=== PATIENT | male | born 1985 | race Caucasian/White ===

== ENCOUNTER 2020-08-30 06:51 | Inpatient (IN) ==
[2020-08-30] MEDS ORDERED: Naloxone 0.4 MG/ML INJ IVP ONE ×2 (07:24→07:31)
[2020-08-30] MEDS ORDERED: 0.9 % Sodium Chloride 1,000 ML IVC ONE ×2 (07:24→12:16)
[2020-08-30] MEDS ORDERED: 0.9 % Sodium Chloride 1,000 ML ONE (07:27)
[2020-08-30 08:26] LABS: INR 1.5; Prothrombin Time 17.6 Seconds (9.4-12.1)
[2020-08-30 08:37] LABS: Troponin I 0.17 ng/mL (< 0.04)
[2020-08-30 08:37] LABS: Basophils % 0.1 %; Hematocrit 38.4 % (37.5-50.1); Hemoglobin 12.4 g/dL (12.9-16.9); Lymphocytes # 0.9 K/mcL (0.6-4.6); Lymphocytes % 8.1 %; Mean Corpuscular HGB Conc 32.3 g/dL (31.6-35.5); Mean Platelet Volume 9.2 fL (9.4-12.4); Monocytes # 1.1 K/mcL (0.0-1.3); Monocytes % 9.5 %; Neutrophils # 9.2 K/mcL (1.6-8.9); Nucleated Red Blood Cells 2.5 /100 WBC (0); Platelet Count 223 K/mcL (140-400); Red Blood Count 4.13 M/mcL (4.19-5.50); Red Cell Distribution Width 13.2 % (11.5-14.5); Segmented Neutrophils % 81.3 %; White Blood Count 11.3 K/mcL (4.3-11.1)
[2020-08-30 08:52] LABS: Alanine Aminotransferase 3234 Units/L (7-52); Albumin/Globulin Ratio 1.6 (1.1-2.2); Alkaline Phosphatase 78 Units/L (34-104); Aspartate Amino Transferase 2985 Units/L (13-39); BUN/Creatinine Ratio 12 (6-26); Bilirubin,Direct 0.3 mg/dL (0.0-0.2); Bilirubin,Indirect 0.6 mg/dL (0.0-1.0); Bilirubin,Total 0.9 mg/dL (0.3-1.0); Blood Urea Nitrogen 26 mg/dL (6-20); Calcium 8.6 mg/dL (8.6-10.3); Carbon Dioxide 23 mEq/L (23-29); Chloride 95 mEq/L (98-107); Ethanol < 10 mg/dL (Less than 10); Globulin 2.5 g/dL (2.4-3.5); Glucose 142 mg/dL (70-105); Osmolality,Calculated 293 (280-300); Potassium 5.4 mEq/L (3.5-5.1); Sodium 138 mEq/L (136-145); Total Protein 6.5 g/dL (6.4-8.9); eGFR For African Americans 42 (> 60); eGFR For Non-African Americans 35 (> 60)
[2020-08-30 09:45] LABS: Acetaminophen < 10 mcg/mL (10-20); Salicylate < 2.5 mg/dL (15.0-30.0)
[2020-08-30] MEDS ORDERED: cefTRIAXone 1,000 MG in 0.9 % Sodium Chloride Mini Bag 100 ML IVPB ONE (12:08)
[2020-08-30] MEDS ORDERED: Azithromycin 500 MG in D5% in Water 250 ML IVPB ONE (12:08)
[2020-08-30] MEDS ORDERED: Ondansetron ODT 4 MG TAB.RAPDIS SL PRN (12:09)
[2020-08-30] MEDS ORDERED: Melatonin 3 MG TABLET PO PRN (12:09)
[2020-08-30] MEDS ORDERED: Naloxone 0.4 MG/ML INJ IVP PRN (12:09)
[2020-08-30] MEDS ORDERED: Mag Hydrox/Al Hydrox/Simeth 30 ML UDC PO PRN (12:09)
[2020-08-30 13:45] LABS: Procalcitonin 2.93 ng/mL (0.00-0.15)
[2020-08-30] MEDS: 0.9 % Sodium Chloride 1,000 ML IVC SCH ×2 (14:22→20:37)
[2020-08-30] MEDS: Ampicillin/Sulbactam 3,000 MG in 0.9 % Sodium Chloride Mini Bag 100 ML IVPB SCH ×2 (14:24→18:45)
[2020-08-30 16:37] LABS: Hepatitis B Surface Antigen Nonreactive (Nonreactive)
[2020-08-30 17:06] LABS: Hepatitis C Virus Antibody Nonreactive (Nonreactive)
[2020-08-30 17:07] LABS: Hepatitis A Antibody IgM Nonreactive (Nonreactive); Hepatitis B Core IgM Nonreactive (Nonreactive)
[2020-08-30] MEDS: *HR* Heparin 5,000 UNIT/ML VIAL SQ SCH ×2 (17:10→22:54)
[2020-08-30 17:57] LABS: Troponin I 0.49 ng/mL (< 0.04)
[2020-08-30] MEDS ORDERED: Ampicillin/Sulbactam 3,000 MG in 0.9 % Sodium Chloride Mini Bag 100 ML IVPB SCH (18:00)
[2020-08-30 18:23] LABS: Amorphous Sediment,Urine Few per hpf (None-Few); Bacteria,Urine Few per hpf (None-Few); Bilirubin,Urine Negative (Negative); Blood,Urine Large (Negative); Clarity,Urine Clear (Clear); Color,Urine Light-Yellow (Yellow); Glucose,Urine (UA) Normal (Normal); Hyaline Casts,Urine Few per lpf (None Seen); Ketones,Urine Negative (Negative); Leukocyte Esterase,Urine Negative (Negative); Mucus,Urine Few per lpf (None-Few); Nitrite,Urine Negative (Negative); Protein,Urine 30 mg/dL (Neg-Trace); RBC,Urine 0-3 per hpf (0-3); Specific Gravity,Urine 1.011 (1.010-1.025); Urobilinogen,Urine Normal (Normal)
[2020-08-30 18:31] LABS: Amphetamine Screen,Urine Negative ng/mL (Cutoff=1000); Barbiturate Screen,Urine Negative ng/mL (Cutoff=200); Benzodiazepines Screen,Urine Negative ng/mL (Cutoff=200); Cannabinoid Screen,Urine Positive ng/mL (Cutoff = 50); Cocaine Screen,Urine Negative ng/mL (Cutoff= 300); Opiate Screen,Urine Negative ng/mL (Cutoff=300); Phencyclidine Screen,Urine Negative ng/mL (Cutoff=25)
[2020-08-30 19:01] LABS: Alanine Aminotransferase 4632 Units/L (7-52); Albumin 3.9 g/dL (3.5-5.7); Albumin/Globulin Ratio 1.7 (1.1-2.2); Alkaline Phosphatase 75 Units/L (34-104); Aspartate Amino Transferase > 3000 Units/L (13-39); BUN/Creatinine Ratio 14 (6-26); Bilirubin,Total 0.9 mg/dL (0.3-1.0); Blood Urea Nitrogen 30 mg/dL (6-20); Carbon Dioxide 27 mEq/L (23-29); Chloride 98 mEq/L (98-107); Globulin 2.3 g/dL (2.4-3.5); Glucose 121 mg/dL (70-105); Osmolality,Calculated 285 (280-300); Potassium 5.1 mEq/L (3.5-5.1); Sodium 134 mEq/L (136-145); Total Protein 6.2 g/dL (6.4-8.9); eGFR For African Americans 44 (> 60); eGFR For Non-African Americans 36 (> 60)
[2020-08-30] MEDS: Budesonide/Formoterol 160/4.5 1 PUFF INH IH SCH (19:47)
[2020-08-30 20:03] LABS: Adenovirus Not Detected (Not Detect); Bordetella Pertussis Not Detected (Not Detect); Chlamydophila pneumoniae Not Detected (Not Detect); Coronavirus 229E Not Detected (Not Detect); Coronavirus HKU1 Not Detected (Not Detect); Coronavirus NL63 Not Detected (Not Detect); Coronavirus OC43 Not Detected (Not Detect); Human Metapneumovirus Not Detected (Not Detect); Human Rhinovirus/Enterovirus DETECTED (Not Detect); Influenza A Subtype 2009 H1 Not Detected (Not Detect); Influenza B Not Detected (Not Detect); Mycoplasma pneumoniae Not Detected (Not Detect); Parainfluenza Virus 1 Not Detected (Not Detect); Parainfluenza Virus 2 Not Detected (Not Detect); Parainfluenza Virus 3 Not Detected (Not Detect); Parainfluenza Virus 4 Not Detected (Not Detect); Respiratory Syncytial Virus Not Detected (Not Detect); SARS-CoV-2 Not Detected (Not Detect)
[2020-08-30] MEDS: Mirtazapine 15 MG TABLET PO SCH (20:24)
[2020-08-31] MEDS: Ampicillin/Sulbactam 3,000 MG in 0.9 % Sodium Chloride Mini Bag 100 ML IVPB SCH ×4 (00:14→18:53)
[2020-08-31] MEDS: Budesonide/Formoterol 160/4.5 1 PUFF INH IH SCH ×2 (08:01→19:32)
[2020-08-31] MEDS ORDERED: *HR* LORazepam 2 MG/ML VIAL IVP PRN (08:21)
[2020-08-31] MEDS ORDERED: 0.9 % Sodium Chloride 1,000 ML IVC SCH (08:30)
[2020-08-31] MEDS: *HR* Heparin 5,000 UNIT/ML VIAL SQ SCH (08:30)
[2020-08-31 09:39] LABS: Basophils % 0.2 %; Eosinophils % 0.1 %; Hematocrit 36.2 % (37.5-50.1); Hemoglobin 11.7 g/dL (12.9-16.9); Immature Granulocytes % 0.9 % (0-4); Lymphocytes % 10.5 %; Mean Corpuscular HGB Conc 32.3 g/dL (31.6-35.5); Mean Corpuscular Hemoglobin 30.2 pg (28.0-33.3); Mean Corpuscular Volume 93.3 fL (83.0-100.0); Mean Platelet Volume 9.3 fL (9.4-12.4); Monocytes # 0.4 K/mcL (0.0-1.3); Monocytes % 4.5 %; Neutrophils # 7.7 K/mcL (1.6-8.9); Platelet Count 150 K/mcL (140-400); Red Blood Count 3.88 M/mcL (4.19-5.50); Red Cell Distribution Width 13.5 % (11.5-14.5); Segmented Neutrophils % 83.8 %; White Blood Count 9.2 K/mcL (4.3-11.1)
[2020-08-31 10:13] LABS: Alanine Aminotransferase 3398 Units/L (7-52); Albumin 3.6 g/dL (3.5-5.7); Albumin/Globulin Ratio 1.4 (1.1-2.2); Alkaline Phosphatase 76 Units/L (34-104); Aspartate Amino Transferase > 3000 Units/L (13-39); BUN/Creatinine Ratio 15 (6-26); Blood Urea Nitrogen 28 mg/dL (6-20); Calcium 7.5 mg/dL (8.6-10.3); Carbon Dioxide 27 mEq/L (23-29); Chloride 97 mEq/L (98-107); Globulin 2.6 g/dL (2.4-3.5); Glucose 141 mg/dL (70-105); Osmolality,Calculated 280 (280-300); Potassium 4.2 mEq/L (3.5-5.1); Sodium 131 mEq/L (136-145); Total Protein 6.2 g/dL (6.4-8.9); eGFR For African Americans 52 (> 60); eGFR For Non-African Americans 43 (> 60)
[2020-08-31] MEDS ORDERED: *HR* Heparin 5,000 UNIT/ML VIAL IVP ONE (12:25)
[2020-08-31] MEDS ORDERED: *HR* Heparin 5,000 UNIT/ML VIAL IVP PRN (12:25)
[2020-08-31] MEDS: ARIPiprazole 10 MG TABLET PO SCH (12:35)
[2020-08-31] MEDS: Aspirin 81 MG TAB.CHEW PO SCH (12:40)
[2020-08-31] MEDS: 0.9 % Sodium Chloride 1,000 ML IVC SCH ×2 (12:40→18:56)
[2020-08-31] MEDS ORDERED: Perflutren Lipid Microsphere 1.3 ML in 0.9 % Sodium Chloride 8.7 ML IVP PRN (12:42)
[2020-08-31 12:51] LABS: Hematocrit 37.8 % (37.5-50.1); Hemoglobin 12.2 g/dL (12.9-16.9); Mean Corpuscular HGB Conc 32.3 g/dL (31.6-35.5); Mean Corpuscular Hemoglobin 30.4 pg (28.0-33.3); Mean Corpuscular Volume 94.3 fL (83.0-100.0); Mean Platelet Volume 8.8 fL (9.4-12.4); Platelet Count 147 K/mcL (140-400); Red Blood Count 4.01 M/mcL (4.19-5.50); Red Cell Distribution Width 13.3 % (11.5-14.5); White Blood Count 8.8 K/mcL (4.3-11.1)
[2020-08-31 12:58] LABS: Heparin anti-factor XA UFH < 0.04 IU/mL (0.30-0.70)
[2020-08-31 12:59] LABS: INR 1.4; Prothrombin Time 15.8 Seconds (9.4-12.1)
[2020-08-31] MEDS: Metoprolol XL (24 HR) Succ 25 MG TAB.ER.24H PO SCH (13:15)
[2020-08-31] MEDS: Heparin 25,000UNIT/250ML 1/2NS 25,000 UNIT/250 ML IV.SOLN IVC SCH (13:34)
[2020-08-31] MEDS: Mirtazapine 15 MG TABLET PO SCH (19:50)
[2020-08-31] MEDS: *HR* Heparin 5,000 UNIT/ML VIAL IVP PRN (20:13)
[2020-09-01] MEDS: Ampicillin/Sulbactam 3,000 MG in 0.9 % Sodium Chloride Mini Bag 100 ML IVPB SCH ×4 (00:36→20:04)
[2020-09-01] MEDS: 0.9 % Sodium Chloride 1,000 ML IVC SCH (02:11)
[2020-09-01 03:19] LABS: Basophils % 0.3 %; Eosinophils % 0.1 %; Hematocrit 34.6 % (37.5-50.1); Hemoglobin 11.1 g/dL (12.9-16.9); Immature Granulocytes % 1.5 % (0-4); Lymphocytes # 1.2 K/mcL (0.6-4.6); Lymphocytes % 14.8 %; Mean Corpuscular HGB Conc 32.1 g/dL (31.6-35.5); Mean Corpuscular Hemoglobin 29.9 pg (28.0-33.3); Mean Corpuscular Volume 93.3 fL (83.0-100.0); Mean Platelet Volume 9.2 fL (9.4-12.4); Monocytes # 0.4 K/mcL (0.0-1.3); Monocytes % 5.5 %; Neutrophils # 6.2 K/mcL (1.6-8.9); Nucleated Red Blood Cells 0.9 /100 WBC (0); Platelet Count 148 K/mcL (140-400); Red Blood Count 3.71 M/mcL (4.19-5.50); Red Cell Distribution Width 13.6 % (11.5-14.5); Segmented Neutrophils % 77.8 %; White Blood Count 7.9 K/mcL (4.3-11.1)
[2020-09-01 03:57] LABS: Alanine Aminotransferase 2285 Units/L (7-52); Albumin 3.4 g/dL (3.5-5.7); Albumin/Globulin Ratio 1.6 (1.1-2.2); Alkaline Phosphatase 72 Units/L (34-104); Aspartate Amino Transferase 1466 Units/L (13-39); BUN/Creatinine Ratio 15 (6-26); Bilirubin,Total 0.9 mg/dL (0.3-1.0); Blood Urea Nitrogen 20 mg/dL (6-20); Calcium 7.3 mg/dL (8.6-10.3); Carbon Dioxide 26 mEq/L (23-29); Chloride 102 mEq/L (98-107); Globulin 2.1 g/dL (2.4-3.5); Glucose 108 mg/dL (70-105); Magnesium 2.2 mg/dL (1.6-2.6); Osmolality,Calculated 283 (280-300); Phosphorous 2.1 mg/dL (2.7-4.5); Potassium 4.2 mEq/L (3.5-5.1); Sodium 135 mEq/L (136-145); Total Protein 5.5 g/dL (6.4-8.9); eGFR For African Americans > 60 (> 60); eGFR For Non-African Americans > 60 (> 60)
[2020-09-01] MEDS: *HR* Heparin 5,000 UNIT/ML VIAL IVP PRN ×2 (04:25→12:19)
[2020-09-01] MEDS ORDERED: Furosemide 40 MG/4 ML VIAL IVP ONE (07:48)
[2020-09-01] MEDS: Budesonide/Formoterol 160/4.5 1 PUFF INH IH SCH ×2 (07:50→20:02)
[2020-09-01] MEDS: Metoprolol XL (24 HR) Succ 25 MG TAB.ER.24H PO SCH (08:13)
[2020-09-01] MEDS: Aspirin 81 MG TAB.CHEW PO SCH (08:13)
[2020-09-01] MEDS: ARIPiprazole 10 MG TABLET PO SCH (08:13)
[2020-09-01] MEDS: Heparin 25,000UNIT/250ML 1/2NS 25,000 UNIT/250 ML IV.SOLN IVC SCH (10:23)
[2020-09-01] MEDS ORDERED: lisinopriL 5 MG TABLET PO SCH (13:30)
[2020-09-01] MEDS: Mirtazapine 15 MG TABLET PO SCH (20:03)
[2020-09-02 00:47] LABS: Basophils % 0.5 %; Eosinophils # 0.1 K/mcL (0.0-0.6); Eosinophils % 0.9 %; Hemoglobin 11.2 g/dL (12.9-16.9); Immature Granulocytes % 2.3 % (0-4); Lymphocytes # 1.6 K/mcL (0.6-4.6); Lymphocytes % 20.9 %; Mean Corpuscular Hemoglobin 29.8 pg (28.0-33.3); Mean Corpuscular Volume 93.1 fL (83.0-100.0); Mean Platelet Volume 9.3 fL (9.4-12.4); Monocytes # 0.6 K/mcL (0.0-1.3); Monocytes % 7.4 %; Neutrophils # 5.3 K/mcL (1.6-8.9); Nucleated Red Blood Cells 0.4 /100 WBC (0); Platelet Count 165 K/mcL (140-400); Red Blood Count 3.76 M/mcL (4.19-5.50); Red Cell Distribution Width 13.7 % (11.5-14.5); White Blood Count 7.7 K/mcL (4.3-11.1)
[2020-09-02] MEDS: Ampicillin/Sulbactam 3,000 MG in 0.9 % Sodium Chloride Mini Bag 100 ML IVPB SCH ×4 (00:59→20:38)
[2020-09-02] MEDS: Heparin 25,000UNIT/250ML 1/2NS 25,000 UNIT/250 ML IV.SOLN IVC SCH (01:00)
[2020-09-02 01:19] LABS: Alanine Aminotransferase 1677 Units/L (7-52); Albumin 3.3 g/dL (3.5-5.7); Albumin/Globulin Ratio 1.4 (1.1-2.2); Alkaline Phosphatase 73 Units/L (34-104); Aspartate Amino Transferase 591 Units/L (13-39); BUN/Creatinine Ratio 14 (6-26); Bilirubin,Total 0.8 mg/dL (0.3-1.0); Blood Urea Nitrogen 16 mg/dL (6-20); Calcium 7.6 mg/dL (8.6-10.3); Carbon Dioxide 31 mEq/L (23-29); Chloride 100 mEq/L (98-107); Globulin 2.3 g/dL (2.4-3.5); Glucose 130 mg/dL (70-105); Magnesium 2.1 mg/dL (1.6-2.6); Osmolality,Calculated 289 (280-300); Phosphorous 2.2 mg/dL (2.7-4.5); Potassium 3.9 mEq/L (3.5-5.1); Sodium 138 mEq/L (136-145); Total Protein 5.6 g/dL (6.4-8.9); eGFR For African Americans > 60 (> 60); eGFR For Non-African Americans > 60 (> 60)
[2020-09-02] MEDS: Budesonide/Formoterol 160/4.5 1 PUFF INH IH SCH ×2 (08:11→19:53)
[2020-09-02] MEDS: Aspirin 81 MG TAB.CHEW PO SCH (08:34)
[2020-09-02] MEDS: ARIPiprazole 10 MG TABLET PO SCH (08:35)
[2020-09-02] MEDS: Lactobacillus 1 EACH CAP.SPRINK PO SCH ×2 (08:35→20:39)
[2020-09-02] MEDS: Metoprolol XL (24 HR) Succ 25 MG TAB.ER.24H PO SCH (08:35)
[2020-09-02] MEDS ORDERED: Furosemide 20 MG/2 ML VIAL IVP ONE (09:00)
[2020-09-02 09:42] LABS: Creatine Kinase 921 Units/L (30-223)
[2020-09-02] MEDS: *HR* Heparin 5,000 UNIT/ML VIAL SQ SCH (16:49)
[2020-09-02] MEDS: Mirtazapine 15 MG TABLET PO SCH (20:39)
[2020-09-03] MEDS: Ampicillin/Sulbactam 3,000 MG in 0.9 % Sodium Chloride Mini Bag 100 ML IVPB SCH ×2 (00:44→07:43)
[2020-09-03] MEDS: *HR* Heparin 5,000 UNIT/ML VIAL SQ SCH (05:27)
[2020-09-03 07:08] VITALS: BP 131/82; PULSE 77; TEMP 98.1; O2SAT 92
[2020-09-03] MEDS: Metoprolol XL (24 HR) Succ 25 MG TAB.ER.24H PO SCH (07:43)
[2020-09-03] MEDS: Lactobacillus 1 EACH CAP.SPRINK PO SCH (07:43)
[2020-09-03] MEDS: Aspirin 81 MG TAB.CHEW PO SCH (07:43)
[2020-09-03] MEDS: ARIPiprazole 10 MG TABLET PO SCH (07:43)
[2020-09-03] MEDS: Budesonide/Formoterol 160/4.5 1 PUFF INH IH SCH (08:01)
[2020-09-03 09:33] LABS: Basophils # 0.1 K/mcL (0.0-0.2); Basophils % 0.6 %; Eosinophils # 0.2 K/mcL (0.0-0.6); Hematocrit 37.8 % (37.5-50.1); Hemoglobin 12.1 g/dL (12.9-16.9); Lymphocytes # 1.6 K/mcL (0.6-4.6); Lymphocytes % 19.1 %; Mean Corpuscular Hemoglobin 29.9 pg (28.0-33.3); Mean Corpuscular Volume 93.3 fL (83.0-100.0); Mean Platelet Volume 9.4 fL (9.4-12.4); Monocytes # 0.8 K/mcL (0.0-1.3); Monocytes % 9.5 %; Neutrophils # 5.6 K/mcL (1.6-8.9); Platelet Count 184 K/mcL (140-400); Red Blood Count 4.05 M/mcL (4.19-5.50); Red Cell Distribution Width 13.5 % (11.5-14.5); Segmented Neutrophils % 66.8 %; White Blood Count 8.4 K/mcL (4.3-11.1)
[2020-09-03 10:12] LABS: Alanine Aminotransferase 901 Units/L (7-52); Albumin 3.2 g/dL (3.5-5.7); Albumin/Globulin Ratio 1.3 (1.1-2.2); Alkaline Phosphatase 66 Units/L (34-104); Aspartate Amino Transferase 147 Units/L (13-39); BUN/Creatinine Ratio 11 (6-26); Bilirubin,Total 0.7 mg/dL (0.3-1.0); Blood Urea Nitrogen 11 mg/dL (6-20); Carbon Dioxide 30 mEq/L (23-29); Chloride 103 mEq/L (98-107); Creatine Kinase 306 Units/L (30-223); Globulin 2.5 g/dL (2.4-3.5); Glucose 103 mg/dL (70-105); Magnesium 1.8 mg/dL (1.6-2.6); Osmolality,Calculated 292 (280-300); Phosphorous 2.9 mg/dL (2.7-4.5); Potassium 3.8 mEq/L (3.5-5.1); Sodium 141 mEq/L (136-145); Total Protein 5.7 g/dL (6.4-8.9); eGFR For African Americans > 60 (> 60); eGFR For Non-African Americans > 60 (> 60)
== END 2020-09-03 11:04 | disposition home or self-care (01) | DRG 812 ==
LOC: 3ANU 06:51 → EMEROOARM 06:51 → 3ANU 13:49 → SUATTDRO 16:00
PROVIDERS: ADMIT Family Medicine; ATTEND Student in an Organized Health Care Education/Training Program

== ENCOUNTER 2021-12-03 09:01 | Observation (INO) ==
[2021-12-03] MEDS ORDERED: Ipratropium/Albuterol Neb 3 ML IH ONE (09:24)
[2021-12-03] MEDS ORDERED: Albuterol 2.5 MG/3 ML NEBULIZER IH ONE (09:24)
[2021-12-03 10:05] LABS: ABG Base Excess 4 mEq/L (-2 to 3); ABG HCO3 31 mEq/L (21-27); ABG Oxygen Saturation 91 % (95-98); ABG PCO2 55 mmHg (35-45); ABG PH 7.36 pH Units (7.32-7.45); ABG PO2 64 mmHg (85-104); ABG TCO2 33 mEq/L (20-26)
[2021-12-03 10:13] LABS: Bacteria,Urine Few per hpf (None-Few); Bilirubin,Urine Negative (Negative); Blood,Urine Negative (Negative); Clarity,Urine Clear (Clear); Color,Urine Yellow (Yellow); Glucose,Urine (UA) Normal (Normal); Hyaline Casts,Urine Few per lpf (None Seen); Ketones,Urine Negative (Negative); Leukocyte Esterase,Urine Negative (Negative); Mucus,Urine Few per lpf (None-Few); Nitrite,Urine Negative (Negative); PH,Urine 6.5 pH Units (5.0-8.0); Protein,Urine 70 mg/dL (Neg-Trace); RBC,Urine 0-3 per hpf (0-3); Renal Epithelial Cells,Urine Few per hpf (None-Few); Specific Gravity,Urine 1.023 (1.010-1.025); Squamous Epithelial Cell,Urine Few per hpf (None-Few); Transitional Epi Cells,Urine Few per hpf (None-Few); Urobilinogen,Urine Normal (Normal)
[2021-12-03] MEDS ORDERED: *HR* LORazepam 2 MG/ML VIAL IVP ONE (10:38)
[2021-12-03 10:40] LABS: Adenovirus Not Detected (Not Detect); Bordetella Pertussis Not Detected (Not Detect); Chlamydophila pneumoniae Not Detected (Not Detect); Coronavirus 229E Not Detected (Not Detect); Coronavirus HKU1 Not Detected (Not Detect); Coronavirus NL63 Not Detected (Not Detect); Coronavirus OC43 Not Detected (Not Detect); Human Metapneumovirus Not Detected (Not Detect); Human Rhinovirus/Enterovirus Not Detected (Not Detect); Influenza A Subtype 2009 H1 Not Detected (Not Detect); Influenza B Not Detected (Not Detect); Mycoplasma pneumoniae Not Detected (Not Detect); Parainfluenza Virus 1 Not Detected (Not Detect); Parainfluenza Virus 2 Not Detected (Not Detect); Parainfluenza Virus 3 Not Detected (Not Detect); Parainfluenza Virus 4 Not Detected (Not Detect); Respiratory Syncytial Virus Not Detected (Not Detect); SARS-CoV-2 Not Detected (Not Detect)
[2021-12-03 11:02] LABS: Basophils % 0.2 %; Eosinophils % 0.2 %; Hematocrit 34.7 % (37.5-50.1); Hemoglobin 10.9 g/dL (12.9-16.9); Immature Granulocytes % 0.7 % (0-4); Lymphocytes # 1.3 K/mcL (0.6-4.6); Lymphocytes % 13.7 %; Mean Corpuscular HGB Conc 31.4 g/dL (31.6-35.5); Mean Corpuscular Hemoglobin 27.1 pg (28.0-33.3); Mean Corpuscular Volume 86.3 fL (83.0-100.0); Mean Platelet Volume 9.2 fL (9.4-12.4); Monocytes # 0.9 K/mcL (0.0-1.3); Monocytes % 9.6 %; Neutrophils # 6.9 K/mcL (1.6-8.9); Nucleated Red Blood Cells 0.2 /100 WBC (0); Platelet Count 222 K/mcL (140-400); Red Blood Count 4.02 M/mcL (4.19-5.50); Red Cell Distribution Width 14.8 % (11.5-14.5); Segmented Neutrophils % 75.6 %; White Blood Count 9.2 K/mcL (4.3-11.1)
[2021-12-03 11:08] LABS: Amphetamine Screen,Urine Positive ng/mL (Cutoff=1000); Barbiturate Screen,Urine Negative ng/mL (Cutoff=200); Benzodiazepines Screen,Urine Negative ng/mL (Cutoff=200); Cannabinoid Screen,Urine Positive ng/mL (Cutoff = 50); Cocaine Screen,Urine Negative ng/mL (Cutoff= 300); Opiate Screen,Urine Negative ng/mL (Cutoff=300); Phencyclidine Screen,Urine Negative ng/mL (Cutoff=25)
[2021-12-03 11:19] LABS: Alanine Aminotransferase 91 Units/L (7-52); Albumin 3.7 g/dL (3.5-5.7); Albumin/Globulin Ratio 1.5 (1.1-2.2); Alkaline Phosphatase 75 Units/L (34-104); Aspartate Amino Transferase 68 Units/L (13-39); BUN/Creatinine Ratio 11 (6-26); Bilirubin,Total 0.5 mg/dL (0.3-1.0); Blood Urea Nitrogen 10 mg/dL (6-20); Calcium 8.1 mg/dL (8.6-10.3); Carbon Dioxide 33 mEq/L (23-29); Chloride 93 mEq/L (98-107); Creatine Kinase 817 Units/L (30-223); Ethanol < 10 mg/dL (Less than 10); Globulin 2.5 g/dL (2.4-3.5); Glucose 133 mg/dL (70-105); Osmolality,Calculated 273 (280-300); Potassium 3.9 mEq/L (3.5-5.1); Sodium 131 mEq/L (136-145); Total Protein 6.2 g/dL (6.4-8.9); eGFR For African Americans > 60 (> 60); eGFR For Non-African Americans > 60 (> 60)
[2021-12-03 11:46] LABS: Troponin I 0.12 ng/mL (< 0.04)
[2021-12-03] MEDS ORDERED: Azithromycin 250 MG TABLET PO ONE (12:09)
[2021-12-03] MEDS ORDERED: cefTRIAXone 1,000 MG in 0.9 % Sodium Chloride 10 ML IVP ONE (12:09)
[2021-12-03] MEDS ORDERED: Naloxone 0.4 MG/ML INJ IVP PRN (12:11)
[2021-12-03] MEDS ORDERED: *HR* LORazepam 2 MG/ML VIAL IVP PRN (13:34)
[2021-12-03] MEDS ORDERED: Ipratropium/Albuterol Neb 3 ML IH PRN (13:51)
[2021-12-03] MEDS ORDERED: Ondansetron 4 MG/2 ML VIAL IVP PRN (14:10)
[2021-12-03] MEDS ORDERED: Albuterol 2.5 MG/3 ML NEBULIZER IH PRN (14:15)
[2021-12-03] MEDS: 0.9 % Sodium Chloride 1,000 ML IVC SCH (14:32)
[2021-12-03] MEDS: ARIPiprazole 10 MG TABLET PO SCH (14:32)
[2021-12-03] MEDS: Topiramate 25 MG TABLET PO SCH (14:32)
[2021-12-03] MEDS: Ipratropium/Albuterol Neb 3 ML IH SCH ×3 (15:50→23:02)
[2021-12-03 16:00] LABS: Estimated Average Glucose 143 mg/dl; Hemoglobin A1C 6.6 %
[2021-12-03] MEDS: *HR* Heparin 5,000 UNIT/ML VIAL SQ SCH (17:59)
[2021-12-03] MEDS: Budesonide/Formoterol 160/4.5 1 PUFF INH IH SCH (20:12)
[2021-12-03] MEDS ORDERED: Acetaminophen 325 MG TABLET PO PRN (20:43)
[2021-12-03] MEDS ORDERED: Ketorolac 30 MG/ML VIAL IVP PRN (20:44)
[2021-12-04 01:43] LABS: Basophils % 0.1 %; Hematocrit 34.7 % (37.5-50.1); Hemoglobin 10.7 g/dL (12.9-16.9); Lymphocytes # 0.7 K/mcL (0.6-4.6); Lymphocytes % 9.8 %; Mean Corpuscular HGB Conc 30.8 g/dL (31.6-35.5); Mean Corpuscular Hemoglobin 26.6 pg (28.0-33.3); Mean Corpuscular Volume 86.1 fL (83.0-100.0); Mean Platelet Volume 9.1 fL (9.4-12.4); Monocytes # 0.8 K/mcL (0.0-1.3); Neutrophils # 5.7 K/mcL (1.6-8.9); Nucleated Red Blood Cells 0.3 /100 WBC (0); Platelet Count 243 K/mcL (140-400); Red Blood Count 4.03 M/mcL (4.19-5.50); Red Cell Distribution Width 14.8 % (11.5-14.5); Segmented Neutrophils % 78.1 %; White Blood Count 7.3 K/mcL (4.3-11.1)
[2021-12-04 02:01] LABS: % Iron Saturation 4 % (20-55); BUN/Creatinine Ratio 12 (6-26); Blood Urea Nitrogen 10 mg/dL (6-20); Calcium 8.1 mg/dL (8.6-10.3); Carbon Dioxide 30 mEq/L (23-29); Chloride 97 mEq/L (98-107); Glucose 136 mg/dL (70-105); Iron 17 mcg/dL (65-175); Magnesium 2.3 mg/dL (1.6-2.6); Osmolality,Calculated 279 (280-300); Phosphorous 2.8 mg/dL (2.7-4.5); Potassium 4.4 mEq/L (3.5-5.1); Sodium 134 mEq/L (136-145); Transferrin 271 mg/dL (203-362); eGFR For African Americans > 60 (> 60); eGFR For Non-African Americans > 60 (> 60)
[2021-12-04 02:19] LABS: Ferritin 51 ng/mL (20-250)
[2021-12-04 02:24] LABS: Folate 14.9 ng/mL (3.0-16.0)
[2021-12-04] MEDS: Ipratropium/Albuterol Neb 3 ML IH SCH ×2 (04:12→07:32)
[2021-12-04] MEDS: 0.9 % Sodium Chloride 1,000 ML IVC SCH ×3 (05:57→16:55)
[2021-12-04] MEDS: *HR* Heparin 5,000 UNIT/ML VIAL SQ SCH ×2 (05:57→16:56)
[2021-12-04] MEDS: Budesonide/Formoterol 160/4.5 1 PUFF INH IH SCH ×2 (07:32→21:39)
[2021-12-04] MEDS ORDERED: Dextrose Gel 15 GM/37.5 ML TUBE PO PRN ×2 (08:33)
[2021-12-04] MEDS ORDERED: *HR* Dextrose 50 % in Water (Syg) 50 ML SYRINGE IVP PRN (08:33)
[2021-12-04] MEDS ORDERED: D5% in Water 1,000 ML IVC PRN (08:33)
[2021-12-04] MEDS: Insulin LISPRO 300 UNITS/3 ML VIAL SUBQ SCH ×3 (09:09→17:50)
[2021-12-04] MEDS: predniSONE 20 MG TABLET PO SCH (09:10)
[2021-12-04] MEDS: amLODIPine 5 MG TABLET PO SCH (09:10)
[2021-12-04] MEDS: Topiramate 25 MG TABLET PO SCH (09:10)
[2021-12-04] MEDS: ARIPiprazole 10 MG TABLET PO SCH (09:10)
[2021-12-04] MEDS ORDERED: Ipratropium/Albuterol Neb 3 ML IH PRN (10:24)
[2021-12-05] MEDS: 0.9 % Sodium Chloride 1,000 ML IVC SCH (04:32)
[2021-12-05] MEDS: *HR* Heparin 5,000 UNIT/ML VIAL SQ SCH (04:32)
[2021-12-05 04:47] VITALS: O2SAT 97
[2021-12-05] MEDS: amLODIPine 5 MG TABLET PO SCH (07:19)
[2021-12-05] MEDS: predniSONE 20 MG TABLET PO SCH (07:19)
[2021-12-05] MEDS: Topiramate 25 MG TABLET PO SCH (07:19)
[2021-12-05] MEDS: ARIPiprazole 10 MG TABLET PO SCH (07:21)
[2021-12-05 07:38] VITALS: BP 128/64; PULSE 86; TEMP 97.7
[2021-12-05] MEDS: Insulin LISPRO 300 UNITS/3 ML VIAL SUBQ SCH (08:29)
[2021-12-05] MEDS: Budesonide/Formoterol 160/4.5 1 PUFF INH IH SCH (09:38)
== END 2021-12-05 09:40 | disposition home or self-care (01) ==
LOC: EMEROOARM 09:01 → 3NENU 09:01 → SUATTDRO 14:11
PROVIDERS: ADMIT Family Medicine; ATTEND Internal Medicine